=== PATIENT | male | born 1980 | race African-American/Black ===

== ENCOUNTER 2018-03-18 15:43 | Emergency (ER) | payer OTHER ==
[2018-03-18 15:57] VITALS: BP 131/84
[2018-03-18] MEDS ORDERED: ACETAMINOPHEN 325 MG TABLET PO ONE (17:20)
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
== END 2018-03-18 18:01 | disposition home or self-care (01) ==
LOC: ER 15:43
DX: M54.6 Pain in thoracic spine (principal); V43.52XA Car driver injured in collision with other type car in traffic accident, initial encounter; F17.200 Nicotine dependence, unspecified, uncomplicated
CPT/HCPCS: 99283